=== PATIENT | male | born 1990 | race Caucasian/White ===

== ENCOUNTER 2018-04-29 10:27 | Emergency (ER) | payer MEDICAID, OTHER ==
[~2018-04-29] VITALS: Ht 172.7 cm; Wt 79.5 kg
[2018-04-29] MEDS ORDERED: ACET-3068 PO (12:19)
[2018-04-29] MEDS ORDERED: PENI500T2 PO (12:19)
[2018-04-29 12:32] VITALS: BP 154/89
== END 2018-04-29 12:34 | disposition home or self-care (01) ==
LOC: ER 10:27
DX: K04.7 Periapical abscess without sinus (principal)
CPT/HCPCS: 99283

== ENCOUNTER 2021-07-17 13:52 | Emergency (ER) | payer MEDICAID ==
[~2021-07-17] VITALS: Ht 170.2 cm; Wt 72.7 kg
[~2021-07-17 13:52] MED LIST: CLIN-97 PO
[2021-07-17 14:03] VITALS: BP 146/98
[2021-07-17] MEDS ORDERED: DIPH25CA83 PO (14:13)
[2021-07-17] MEDS ORDERED: MELA1TAB28 PO (14:13)
[2021-07-18] MEDS ORDERED: NO HOME MEDS (18:09)
== END 2021-07-17 14:22 | disposition home or self-care (01) ==
LOC: ER 13:53
DX: G47.00 Insomnia, unspecified (principal); Z72.89 Other problems related to lifestyle; Z79.2 Long term (current) use of antibiotics; Z79.899 Other long term (current) drug therapy
CPT/HCPCS: 99282; 99283

== ENCOUNTER 2021-07-18 09:32 | Emergency (ER) | payer MEDICAID ==
[~2021-07-18] VITALS: Ht 170.2 cm; Wt 80.0 kg
[~2021-07-18 09:32] MED LIST changes: +DIPH25CA83 PO; +MELA1TAB28 PO
[2021-07-18] MEDS ORDERED: LORazepam 1 MG tablet PO ONE ×2 (11:15→17:35)
[2021-07-18 11:30] LABS: BASOPHILS % (AUTO) 0.5 % (0-1); EOSINOPHILS % (AUTO) 0.6 % (0-6); HEMATOCRIT 39.6 % (42.0-52.0); HEMOGLOBIN 13.7 g/dl (14.0-17.9); LYMPHOCYTES # (AUTO) 1.2 X10'3 (1.1-4.8); LYMPHOCYTES % (AUTO) 16.6 % (21-51); MEAN CORPUSCULAR HGB CONC 34.7 g/dL (33.0-36.5); MEAN PLATELET VOLUME 7.2 FL (7.4-10.4); MONOCYTES # (AUTO) 0.9 X10'3 (0-0.9); MONOCYTES % (AUTO) 12.6 % (2-12); NEUTROPHILS # (AUTO) 5.1 X10'3 (1.8-7.7); NEUTROPHILS % (AUTO) 69.7 % (42-75); PLATELET COUNT 202 X10'3 (140-440); RED BLOOD COUNT 3.92 X10'6 (4.70-6.10); RED CELL DISTRIBUTION WIDTH 12.8 % (11.5-14.5); WHITE BLOOD COUNT 7.2 X10'3 (4.5-11.0)
[2021-07-18 11:50] LABS: ALANINE AMINOTRANSFERASE 89 U/L (12-78); ALBUMIN 4.2 G/DL (3.4-5.0); ALBUMIN/GLOBULIN RATIO 1.2 (1.1-1.5); ALKALINE PHOSPHATASE 72 IU/L (46-116); ANION GAP 15 (8-16); ASPARTATE AMINO TRANSFERASE 104 U/L (10-37); BILIRUBIN,TOTAL 0.7 MG/DL (0.1-1.0); BLOOD UREA NITROGEN 11 MG/DL (7-18); BUN/CREATININE RATIO 13.1 (5.4-32.0); CALCIUM 8.8 MG/DL (8.5-10.1); CHLORIDE 103 MMOL/L (99-107); CREATININE 0.84 MG/DL (0.60-1.10); GLUCOSE 65 MG/DL (70-104); POTASSIUM 3.4 MMOL/L (3.5-5.1); SODIUM 139 MMOL/L (135-145); TOTAL CARBON DIOXIDE 21.2 MMOL/L (24-32); TOTAL PROTEIN 7.7 G/DL (6.4-8.2); eGFR > 90 ML/MIN
[2021-07-18 11:53] LABS: ETHANOL 0.064 GM/DL (0.0-0.010)
[2021-07-18 13:19] LABS: CLARITY,URINE SLIGHTLY CLOUDY (Clear); COLOR,URINE YELLOW (Yellow); GLUCOSE, URINE NEGATIVE (Neg); KETONES,URINE 15 mg/dl (Neg); NITRITES, URINE NEGATIVE (Neg); OCCULT BLOOD,URINE NEGATIVE (Neg); PROTEIN,URINE TRACE mg/dl (Neg); UA COLLECTION TYPE URINAL
[2021-07-18 13:20] LABS: LEUKOCYTE ESTERASE ,URINE NEGATIVE (Neg); UROBILINOGEN,URINE 0.2 E.U/dL (0.2-1.0)
[2021-07-18 13:24] LABS: MUCUS STRANDS MODERATE /LPF (Neg); SQUAMOUS EPITHELIAL CELL,UR FEW /LPF (FEW)
[2021-07-18 13:25] LABS: BACTERIA,URINE 1+ /HPF (Neg); RBC,URINE 0-2 /HPF (0-2); WBC,URINE 0-4 /HPF (0-4)
[2021-07-18 13:28] LABS: URINE AMPHETAMINE SCREEN NEGATIVE (Neg); URINE BARBITUATE SCREEN NEGATIVE (Neg); URINE BENZODIAZEPINES SCREEN NEGATIVE (Neg); URINE CANNABINOID SCREEN POSITIVE (Neg); URINE COCAINE SCREEN NEGATIVE (Neg); URINE METHADONE SCREEN NEGATIVE (Neg); URINE OPIATE SCREEN NEGATIVE (Neg); URINE PHENCYCLIDINE SCREEN NEGATIVE (Neg)
--- NOTE | 2021-07-18 17:44 | NUR ---
RN received pt. from main ER. Pt. is A&O to self and situation. Pt.'s admit and physical assessments done. Pt. has significant tremors and appears with flushed skin. Pt. reports that for the last 2 months he has been hearing voices and seeing people who have conversations with him and that the voices sometimes become aggressive. Pt. has reports he has also been struggling with insomnia. Pt. reports he has never received any psychiatric diagnoses before. Pt. reports drinking 1-2 beers every day for the last 5 years. Pt. denies SI/HI. Pt. is calm and cooperative [facility] assessment.
[2021-07-18] MEDS ORDERED: NO HOME MEDS (18:09)
--- NOTE | 2021-07-18 18:17 | NUR ---
Packet sent to [facility]
--- NOTE | 2021-07-18 18:33 | NUR ---
One to one with the patient who was very pleasant and cooperative with the evening assessment. The patient was updated on the plan of care. He was made aware that [facility] would assess him in the morning. He has slight hand tremors. He stated his mood was good. Reports that he has had significant insomnia.
--- NOTE | 2021-07-18 19:40 | NUR ---
The patient is having conversations with people who are not there. Call to psychiatry PA and left message for call back.
--- NOTE | 2021-07-18 20:20 | NUR ---
Discussed patient presentation with Dr. Katz and orders received.
--- NOTE | 2021-07-18 20:37 | NUR ---
One to one with the patient to reassess for DT's. He reports that he has drank etoh the majority of the past 30 days. When asked how much he drank he reports that he drinks a "couple of tall cans" per day. He was unable to understand what was being asked of him when asked what day of the week it was. He abruptly asked, "Did you say he's eating egyption style?" He is restless in his bed. Minimal tremors. HR 84 BP 128/91.
[2021-07-18] MEDS ORDERED: OLANZapine 2.5MG tablet PO SCH (21:00)
--- NOTE | 2021-07-18 21:03 | NUR ---
Patient to CT
--- NOTE | 2021-07-18 21:07 | NUR ---
The patient back from CT
--- NOTE | 2021-07-18 21:40 | NUR ---
The patient is restless.
--- NOTE | 2021-07-18 21:56 | NUR ---
The patient is talking to himself. HR was 71. Dr Katz made aware no response to zyprexa. Orders received.
--- NOTE | 2021-07-18 23:01 | NUR ---
The patient is talking to himself.
--- NOTE | 2021-07-19 00:11 | NUR ---
The patient appears to be asleep at this time.
--- NOTE | 2021-07-19 02:15 | NUR ---
The patient appears to be sleeping
--- NOTE | 2021-07-19 04:56 | NUR ---
The patient appears to be sleeping
--- NOTE | 2021-07-19 06:30 | NUR ---
Pt. sleeping in supine position in bed.
--- NOTE | 2021-07-19 08:30 | NUR ---
Pt. awake and eating breakfast at bedside.
--- NOTE | 2021-07-19 09:00 | NUR ---
1:1 done at bedside, pt. reports he is feeling much better today. Denies SI/HI, A/V hallucinations. Pt.'s hand tremors have improved.
--- NOTE | 2021-07-19 10:30 | NUR ---
Pt. asleep in bed in supine position.
--- NOTE | 2021-07-19 12:30 | NUR ---
Pt. speaking with [facility] social sciences research scientist at bedside.
[2021-07-19] MEDS ORDERED: TRAZ-256 PO (13:19)
[2021-07-19 13:34] VITALS: BP 130/90
== END 2021-07-19 13:30 | disposition home or self-care (01) ==
LOC: ER 09:34
DX: F23 Brief psychotic disorder (principal); Z20.822 Contact with and (suspected) exposure to COVID-19; F10.10 Alcohol abuse, uncomplicated; Z72.89 Other problems related to lifestyle; Z79.899 Other long term (current) drug therapy; Y90.0 Blood alcohol level of less than 20 mg/100 ml
CPT/HCPCS: 36415; 70450; 80053; 80305; 80320; 81001; 82140; 84443; 85025; 87635; 99285; C9803

== ENCOUNTER 2022-10-18 13:54 | Emergency (ER) | payer MEDICAID ==
[~2022-10-18] VITALS: Ht 167.6 cm; Wt 70.0 kg
[~2022-10-18 13:54] MED LIST changes: -CLIN-97 PO; -DIPH25CA83 PO; -MELA1TAB28 PO; +NO HOME MEDS; +TRAZ-256 PO
[2022-10-18 14:41] VITALS: BP 123/89
[2022-10-18 15:22] LABS: BASOPHILS % (AUTO) 0.9 % (0-1); EOSINOPHILS % (AUTO) 0.3 % (0-6); HEMATOCRIT 38.6 % (42.0-52.0); HEMOGLOBIN 13.4 g/dl (14.0-17.9); LYMPHOCYTES % (AUTO) 24.1 % (21-51); MEAN CORPUSCULAR HEMOGLOBIN 35.9 PG (27.0-31.0); MEAN CORPUSCULAR HGB CONC 34.6 g/dL (33.0-36.5); MEAN CORPUSCULAR VOLUME 103.8 FL (78-98); MEAN PLATELET VOLUME 8.5 FL (7.4-10.4); MONOCYTES # (AUTO) 0.4 X10'3 (0-0.9); MONOCYTES % (AUTO) 10.9 % (2-12); NEUTROPHILS # (AUTO) 2.5 X10'3 (1.8-7.7); NEUTROPHILS % (AUTO) 63.8 % (42-75); PLATELET COUNT 60 X10'3 (140-440); RED BLOOD COUNT 3.72 X10'6 (4.70-6.10); RED CELL DISTRIBUTION WIDTH 13.8 % (11.5-14.5); WHITE BLOOD COUNT 3.9 X10'3 (4.5-11.0)
[2022-10-18 15:25] LABS: CLARITY,URINE SLIGHTLY CLOUDY (Clear); COLOR,URINE YELLOW (Yellow); GLUCOSE, URINE NEGATIVE (Neg); KETONES,URINE TRACE mg/dl (Neg); LEUKOCYTE ESTERASE ,URINE NEGATIVE (Neg); NITRITES, URINE NEGATIVE (Neg); OCCULT BLOOD,URINE NEGATIVE (Neg); PROTEIN,URINE NEGATIVE (Neg)
[2022-10-18 15:32] LABS: ALANINE AMINOTRANSFERASE 91 U/L (12-78); ALKALINE PHOSPHATASE 264 IU/L (46-116); ANION GAP 8 (8-16); ASPARTATE AMINO TRANSFERASE 272 U/L (10-37); BLOOD UREA NITROGEN 5 MG/DL (7-18); BUN/CREATININE RATIO 8.5 (5.4-32.0); CALCIUM 8.3 MG/DL (8.5-10.1); CHLORIDE 95 MMOL/L (99-107); CREATININE 0.59 MG/DL (0.60-1.10); GLUCOSE 92 MG/DL (70-104); LIPASE 218 U/L (73-393); POTASSIUM 4.2 MMOL/L (3.5-5.1); SODIUM 132 MMOL/L (135-145); TOTAL CARBON DIOXIDE 28.8 MMOL/L (24-32); eGFR > 90 ML/MIN
[2022-10-18 15:53] LABS: UA COLLECTION TYPE CLN CATCH MIDSTREAM
[2022-10-18 15:54] LABS: BACTERIA,URINE FEW /HPF (Neg); MUCUS STRANDS MODERATE /LPF (Neg); RBC,URINE 0-2 /HPF (0-2); SQUAMOUS EPITHELIAL CELL,UR MODERATE /LPF (FEW); WBC,URINE 0-4 /HPF (0-4)
== END 2022-10-18 21:20 | disposition left against medical advice (07) ==
LOC: ER 13:56
DX: R30.0 Dysuria (principal)
CPT/HCPCS: 36415; 80053; 81001; 83690; 85025; 99283

== ENCOUNTER 2023-06-25 16:42 | Emergency (ER) | payer MEDICAID ==
[~2023-06-25] VITALS: Ht 172.7 cm; Wt 80.0 kg
--- NOTE | 2023-06-25 18:05 | NUR ---
pt states every time he stops drinking he starts hearing voices and not feeling well, pt drank 2 days ago. XPLVN
[2023-06-25] MEDS ORDERED: CHLO25CA10 PO (19:34)
[2023-06-25 19:49] VITALS: BP 129/92; PULSE 69; RESP 18; TEMP 97.3; O2SAT 98
--- NOTE | 2023-06-25 22:45 | NUR ---
[facility] ASSESSMENT REVIEWED, AGREE
== END 2023-06-25 19:51 | disposition home or self-care (01) ==
LOC: ER 16:43
DX: F10.930 Alcohol use, unspecified with withdrawal, uncomplicated (principal); Y90.9 Presence of alcohol in blood, level not specified
CPT/HCPCS: 99283

== ENCOUNTER 2024-09-22 05:14 | Emergency (ER) | payer BC, MEDICAID ==
[~2024-09-22] VITALS: Ht 172.7 cm; Wt 84.7 kg
[~2024-09-22 05:14] MED LIST changes: +CHLO25CA10 PO
[2024-09-22 05:54] LABS: BASOPHILS % (AUTO) 0.5 % (0-1); EOSINOPHILS # (AUTO) 0.2 X10'3 (0-0.9); EOSINOPHILS % (AUTO) 3.9 % (0-6); HEMATOCRIT 43.2 % (42.0-52.0); HEMOGLOBIN 15.7 g/dl (14.0-17.9); LYMPHOCYTES # (AUTO) 1.6 X10'3 (1.1-4.8); LYMPHOCYTES % (AUTO) 27.6 % (21-51); MEAN CORPUSCULAR HEMOGLOBIN 36.5 PG (27.0-31.0); MEAN CORPUSCULAR HGB CONC 36.3 g/dL (33.0-36.5); MEAN CORPUSCULAR VOLUME 100.8 FL (78-98); MEAN PLATELET VOLUME 7.5 FL (7.4-10.4); MONOCYTES # (AUTO) 0.7 X10'3 (0-0.9); MONOCYTES % (AUTO) 11.6 % (2-12); NEUTROPHILS # (AUTO) 3.3 X10'3 (1.8-7.7); NEUTROPHILS % (AUTO) 56.4 % (42-75); PLATELET COUNT 190 X10'3 (140-440); RED BLOOD COUNT 4.29 X10'6 (4.70-6.10); RED CELL DISTRIBUTION WIDTH 12.8 % (11.5-14.5); WHITE BLOOD COUNT 5.8 X10'3 (4.5-11.0)
[2024-09-22 07:05] LABS: ALANINE AMINOTRANSFERASE 60 U/L (12-78); ALKALINE PHOSPHATASE 154 IU/L (46-116); ANION GAP 18 (8-16); ASPARTATE AMINO TRANSFERASE 88 U/L (10-37); BILIRUBIN,TOTAL 0.4 MG/DL (0.1-1.0); BLOOD UREA NITROGEN 11 MG/DL (7-18); BUN/CREATININE RATIO 14.7 (10.0-20.0); CALCIUM 8.8 MG/DL (8.5-10.1); CHLORIDE 101 MMOL/L (99-107); CREATININE 0.75 MG/DL (0.60-1.10); GLUCOSE 113 MG/DL (70-104); LIPASE 22 U/L (16-77); POTASSIUM 4.2 MMOL/L (3.5-5.1); SODIUM 137 MMOL/L (135-145); TOTAL CARBON DIOXIDE 18.5 MMOL/L (24-32); TOTAL PROTEIN 7.9 G/DL (6.4-8.2); eCRCL 132 ML/MIN; eGFR > 90 ML/MIN
[2024-09-22] MEDS ORDERED: QUET50TA24 PO (07:36)
[2024-09-22 07:58] LABS: BILIRUBIN,URINE NEGATIVE (Neg); CLARITY,URINE CLEAR (Clear); COLOR,URINE YELLOW (Yellow); GLUCOSE, URINE NEGATIVE (Neg); KETONES,URINE NEGATIVE (Neg); LEUKOCYTE ESTERASE ,URINE NEGATIVE (Neg); NITRITES, URINE NEGATIVE (Neg); OCCULT BLOOD,URINE NEGATIVE (Neg); PROTEIN,URINE NEGATIVE (Neg); UROBILINOGEN,URINE 0.2 E.U/dL (0.2-1.0)
[2024-09-22 08:04] LABS: UA COLLECTION TYPE CLN CATCH MIDSTREAM
[2024-09-22 08:28] LABS: PLATELET ESTIMATE NORMAL; SPHEROCYTES 1+
[2024-09-22] MEDS ORDERED: LIDO700A32 TD (09:19)
[2024-09-22 12:32] VITALS: BP 118/75; PULSE 78; RESP 14; TEMP 98.1; O2SAT 0
== END 2024-09-22 09:30 | disposition home or self-care (01) ==
LOC: ER 05:14
DX: R10.11 Right upper quadrant pain (principal); R07.89 Other chest pain; Z79.899 Other long term (current) drug therapy
CPT/HCPCS: 36415; 71045; 76700; 80053; 81003; 83690; 85008; 85025; 99284